=== PATIENT | female | born 1975 | race Caucasian/White ===

== ENCOUNTER 2019-01-18 14:20 | Emergency (ER) | payer MEDICAID ==
[~2019-01-18] VITALS: Ht 165.1 cm; Wt 65.0 kg
[2019-01-18] MEDS ORDERED: CLON0.5T PO (14:24)
[2019-01-18] MEDS ORDERED: CLON-457 PO (14:24)
[2019-01-18] MEDS ORDERED: CLONAZEPAM 0.5MG TABLET PO ONE (15:00)
[2019-01-18 16:46] VITALS: BP 140/89
== END 2019-01-18 16:50 | disposition home or self-care (01) ==
LOC: ER 14:20
DX: F41.9 Anxiety disorder, unspecified (principal); I10 Essential (primary) hypertension; Z88.6 Allergy status to analgesic agent
CPT/HCPCS: 81025; 99284

== ENCOUNTER 2019-02-28 11:04 | Emergency (ER) | payer MEDICAID ==
[~2019-02-28] VITALS: Ht 167.6 cm; Wt 77.0 kg
[~2019-02-28 11:04] MED LIST: CLON-457 PO; CLON0.5T PO
[2019-02-28] MEDS ORDERED: SODIUM CHLORIDE 0.9% 1,000 ML IV ONE (13:12)
[2019-02-28] MEDS ORDERED: ONDANSETRON HCL 4MG/2ML INJ IV STA (13:12)
[2019-02-28] MEDS ORDERED: MORPHINE SULFATE 4 MG/ML CPJ (NOT FOR IM USE) IV STA (13:12)
[2019-02-28 13:48] LABS: CLARITY URINE CLEAR (CLEAR); COLOR URINE YELLOW (YELLOW); KETONES URINE NEGATIVE (NEGATIVE); LEUKOCYTE ESTERASE URINE NEGATIVE (NEGATIVE); NITRITE URINE NEGATIVE (NEGATIVE); OCCULT BLOOD URINE NEGATIVE (NEGATIVE); PH URINE 7.5 (4.5-8.0); PROTEIN URINE NEGATIVE (NEGATIVE); SPECIFIC GRAVITY URINE 1.007 (1.005-1.030); UROBILINOGEN URINE 0.2 E.U./dL (0.2-1.0)
[2019-02-28 13:50] LABS: BASOPHILS % 0.5 % (0.0-2.0); EOSINOPHILS % 6.2 % (0.0-5.0); HEMATOCRIT. 36.7 % (36.0-48.0); HEMOGLOBIN. 12.6 g/dL (12.0-16.0); LYMPHOCYTES % 18.1 % (20.0-50.0); MEAN CORPUSCULAR HEMOGLOBIN 31.1 pg (28.0-32.0); MEAN CORPUSCULAR VOLUME 90.4 fL (81.0-99.0); MEAN PLATELET VOLUME 9.7 fl (7.4-10.4); MONOCYTES % 6.5 % (2.0-8.0); NEUTROPHILS % 68.7 % (40.0-76.0); PLATELET 292 x1000/uL (130-400); RED BLOOD CELL COUNT 4.06 mill/uL (4.2-5.4); RED CELL DISTRIBUTION WIDTH 14.7 % (11.6-14.6)
[2019-02-28 13:56] LABS: INR 0.9; PROTHROMBIN TIME 9.5 sec (9.6-11.0)
[2019-02-28 13:57] LABS: CHLORIDE 107 mEq/L (98-107)
[2019-02-28 14:01] LABS: HCG SCREEN NEGATIVE
[2019-02-28] MEDS ORDERED: ACETAMINOPHEN 325MG TABLET PO ONE (16:30)
[2019-02-28] MEDS ORDERED: METRONIDAZOLE 500MG TABLET PO NR (16:45)
[2019-02-28 16:48] VITALS: BP 124/62
[2019-02-28] MEDS ORDERED: IOHEXOL-300 100 ML BOTTLE ONE (17:27)
== END 2019-02-28 17:04 | disposition home or self-care (01) ==
LOC: ER 11:04
DX: G89.18 Other acute postprocedural pain (principal); R10.32 Left lower quadrant pain; R10.33 Periumbilical pain; R61 Generalized hyperhidrosis; R11.2 Nausea with vomiting, unspecified; R68.83 Chills (without fever); R19.7 Diarrhea, unspecified; F41.9 Anxiety disorder, unspecified; F12.10 Cannabis abuse, uncomplicated; F17.200 Nicotine dependence, unspecified, uncomplicated; I10 Essential (primary) hypertension; Z90.49 Acquired absence of other specified parts of digestive tract; Z90.710 Acquired absence of both cervix and uterus; Z98.890 Other specified postprocedural states; Z90.721 Acquired absence of ovaries, unilateral; Z79.899 Other long term (current) drug therapy; Z88.8 Allergy status to other drugs, medicaments and biological substances; Z88.6 Allergy status to analgesic agent
CPT/HCPCS: 36415; 74177; 80053; 81003; 83605; 83690; 84703; 85025; 85610; 96361; 96374; 96375; 99284; J2270; J2405; J7030; Q9967